=== PATIENT | male | born 1995 | race Caucasian/White ===

== ENCOUNTER 2017-04-05 15:43 | Emergency (ER) | payer OTHER ==
[2017-04-05] MEDS ORDERED: fentaNYL-PF 50 mCg/mL 2 mL Inj ONE ×2 (15:52→15:58)
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
[2017-04-05] MEDS ORDERED: 0.9% Sodium Chloride 1,000 ML IV ONE (16:07)
[2017-04-05] MEDS ORDERED: HYDROmorphone 0.5 mg/0.5 mL iSecure Syringe IVPUSH PRN (16:10)
[2017-04-05] MEDS ORDERED: Ondansetron 2 mg/mL 2 mL Inj IVPUSH PRN (16:10)
[2017-04-05 16:14] LABS: BASOPHILS % (AUTO) 0 % (0-3); EOSINOPHILS % (AUTO) 2 % (0-5); MONOCYTES % (AUTO) 9 % (4-12); Mean Corpuscular Hemoglobin 30.3 pg (27.0-35.0); Mean Corpuscular Volume 90 fL (81-100); NEUTROPHILS % (AUTO) 56 % (40-74); Platelet Count 291 bil/L (150-400)
[2017-04-05 16:16] LABS: INR 0.97 ratio
[2017-04-05] MEDS ORDERED: Lidocaine 1% Buffered 10 mL Syringe NERVEBLOCK ONE (16:20)
[2017-04-05] MEDS ORDERED: Lidocaine 2% 6mL Topical Jelly ONE (16:22)
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
[2017-04-05] MEDS ORDERED: Lidocaine 2% 6mL Topical Jelly TOPICAL PRN (16:25)
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
[2017-04-05 16:37] LABS: TROPONIN T < 0.010 ug/L (0.0-0.011)
[2017-04-05 16:46] LABS: Lipase 69 U/L (13-60)
--- NOTE | 2017-04-05 17:03 | ABG ---
DateTimeAnalyzed 16:54:56 -_ pH ____7.354 - 7.350 7.450 pCO2 ___43.9__ -mmHg 35.0 45.0 pO2 117 -mmHg 69.0 116 HCO3- ___24.4__ -mmol/L 22.0 26.0 ABE ___-1.1__ -mmol/L tHb ___14.5__ -g/dL O2Hb ___95.0__ -% COHb ____3.6__ -% 1.5 MetHb ____0.4__ -% sO2 ___99.0__ -% FIO2 ___21.0__ -% Drawn By rs - Date/Time Notified____ 17:03:00 -_ Liter_Flow ____2.00_ -L/min Oxygen Device 1 __CANNULA - Notified By rs - Notified Whom Karina, manuela -__ K+ ____3.3__ -mmol/L tO2 ___19.5__ -Vol% Jake test N/A -
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
--- NOTE | 2017-04-05 17:17 | DRSVH ---
PROCEDURE: CT CERVICAL SPINE WITHOUT CONTRAST ([id number]) INDICATIONS: trauma TECHNIQUE: Noncontrast 3 mm thick sections acquired from the skull base to the T4 level. Sagittal and coronal r eformats were then constructed. For radiation dose reduction, the following was used: automated exp osure control, adjustment of mA and/or kV according to patient size. COMPARISON: None. FINDINGS: Image quality: Excellent. Bones: No fractures or dislocations. Visualized superior ribs are intact. Soft tissues: Prevertebral soft tissues are normal in thickness. No paravertebral hematomas. No ap ical pneumothoraces. IMPRESSION: No trauma found. Dictated by: Melquiades Stuart M.D. on 04/05/2017 at 17:14 Approved by: Melquiades Stuart M.D. on 04/05/2017 at 17:15
--- NOTE | 2017-04-05 17:18 | DRSVH ---
PROCEDURE: CT BRAIN WITHOUT CONTRAST ([id number]) INDICATIONS: trauma TECHNIQUE: Noncontrast 4.5 mm thick angled axial sections acquired from the foramen magnum to the vertex, with c oronal reformats. COMPARISON: None. FINDINGS: Image quality: Excellent. CSF spaces: Basal cisterns are patent. No extra-axial fluid collections. Ventricles are normal in size and shape. Brain: No midline shift. No intracranial masses or hemorrhage. Sheikh-white matter interface is norm al. Skull and face: Calvarium and visualized facial bones are intact, without suspicious lesions. Sinuses: Visualized sinuses and mastoids are clear. IMPRESSION: No trauma found. Dictated by: Melquiades Stuart M.D. on 04/05/2017 at 17:16 Approved by: Melquiades Stuart M.D. on 04/05/2017 at 17:17
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
[2017-04-05] MEDS: 0.9% Sodium Chloride 1,000 ML IV SCH (19:00)
[2017-04-05 20:18] LABS: APPEARANCE,URINE CLEAR (CLEAR,HAZY); COLOR,URINE YELLOW (YELLOW); OCCULT BLOOD,URINE LARGE (NEGATIVE); UROBILINOGEN,URINE NORMAL (NORMAL)
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
[2017-04-06] MEDS ORDERED: HYDROmorphone 0.5 mg/0.5 mL iSecure Syringe IVPUSH ONE ×2 (00:59→01:00)
[2017-04-06] MEDS ORDERED: 0.9% Sodium Chloride 1,000 ML IV ONE (01:00)
[2017-04-06] MEDS: 0.9% Sodium Chloride 1,000 ML IV SCH (01:05)
== END 2017-04-05 20:50 | disposition short-term general hospital (02) ==
LOC: SED 15:43
DX: S72.352A Displaced comminuted fracture of shaft of left femur, initial encounter for closed fracture (principal); S22.32XA Fracture of one rib, left side, initial encounter for closed fracture; S52.592A Other fractures of lower end of left radius, initial encounter for closed fracture; S62.395A Other fracture of fourth metacarpal bone, left hand, initial encounter for closed fracture; S27.321A Contusion of lung, unilateral, initial encounter; V47.5XXA Car driver injured in collision with fixed or stationary object in traffic accident, initial encounter; Y92.410 Unspecified street and highway as the place of occurrence of the external cause; Y93.89 Activity, other specified; Y99.8 Other external cause status; F12.10 Cannabis abuse, uncomplicated; Z88.2 Allergy status to sulfonamides
CPT/HCPCS: 36620; 51702; 70450; 71010; 71260; 72125; 72170; 73120; 73551; 73560; 73610; 74177; 80053; 81001; 82803; 83690; 83735; 84484; 85014; 85018; 85025; 85610; 85730; 86850; 93005; 94799; 96361; 96374; 96375; 96376; 99285; G0390; G0480; J1170; J2060; J3010; J7030; Q9967